=== PATIENT | female | born 1945 | race Caucasian/White ===

== ENCOUNTER 2018-05-23 11:54 | Outpatient (CLI) | payer MEDICARE, BC ==
[2018-05-23] VITALS (23 sets, daily range): BP systolic 114–142; BP diastolic 51–88
== END 2018-05-23 23:59 | disposition home or self-care (01) ==
LOC: CARD DIAG 11:54
PROVIDERS: ATTEND Internal Medicine Cardiovascular Disease
DX: R42 Dizziness and giddiness (principal)
CPT/HCPCS: 93660

== ENCOUNTER 2019-02-26 20:29 | Emergency (ER) | payer MEDICARE, BC ==
[~2019-02-26] VITALS: Ht 152.4 cm; Wt 65.0 kg
[2019-02-26] MEDS ORDERED: BENZ200C53 PO (21:14)
[2019-02-26] MEDS ORDERED: acetaminophen w/codeine (30MG) #3 tablet PO ONE (21:15)
[2019-02-26] MEDS ORDERED: benzonatate 100mg capsule PO ONE (21:15)
[2019-02-26 22:04] VITALS: BP 138/76
== END 2019-02-26 22:05 | disposition home or self-care (01) ==
LOC: ER 20:29
DX: R05 Cough (principal); I10 Essential (primary) hypertension; I25.2 Old myocardial infarction; Z79.899 Other long term (current) drug therapy
CPT/HCPCS: 71046; 93005; 99283

== ENCOUNTER 2019-03-01 20:54 | Emergency (ER) | payer MEDICARE, BC ==
[~2019-03-01] VITALS: Ht 152.4 cm; Wt 68.2 kg
[~2019-03-01 20:54] MED LIST: BENZ200C53 PO
[2019-03-01] MEDS ORDERED: aspirin 81mg tab.chew PO ONE (21:00)
[2019-03-01 21:25] LABS: BASOPHILS % (AUTO) 0.3 % (0-1); EOSINOPHILS # (AUTO) 0.4 X10'3 (0-0.9); EOSINOPHILS % (AUTO) 2.7 % (0-6); HEMATOCRIT 33.9 % (35.0-45.0); HEMOGLOBIN 11.4 g/dl (12.0-16.0); LYMPHOCYTES # (AUTO) 0.7 X10'3 (1.1-4.8); MEAN CORPUSCULAR HEMOGLOBIN 30.4 PG (27.0-31.0); MEAN CORPUSCULAR HGB CONC 33.6 g/dL (33.0-36.5); MEAN CORPUSCULAR VOLUME 90.4 FL (78-98); MONOCYTES # (AUTO) 0.5 X10'3 (0-0.9); MONOCYTES % (AUTO) 3.5 % (2-12); NEUTROPHILS # (AUTO) 11.8 X10'3 (1.8-7.7); NEUTROPHILS % (AUTO) 88.5 % (42-75); PLATELET COUNT 345 X10'3 (140-440); RED BLOOD COUNT 3.75 X10'6 (4.20-5.60); RED CELL DISTRIBUTION WIDTH 13.1 % (11.5-14.5); WHITE BLOOD COUNT 13.3 X10'3 (4.5-11.0)
[2019-03-01] MEDS ORDERED: ipratropium/albuterol 3ml nebule NEB ONE (21:30)
[2019-03-01] MEDS ORDERED: methylPREDNISolone sod succ 125mg/2ml vial IV ONE (21:30)
[2019-03-01 21:36] LABS: ALANINE AMINOTRANSFERASE 30 U/L (12-78); ALBUMIN 3.5 G/DL (3.4-5.0); ALKALINE PHOSPHATASE 103 IU/L (46-116); ANION GAP 6 (8-16); ASPARTATE AMINO TRANSFERASE 26 U/L (10-37); BILIRUBIN,TOTAL 0.6 MG/DL (0.1-1.0); BLOOD UREA NITROGEN 10 MG/DL (7-18); BUN/CREATININE RATIO 12.8 (6.6-38.0); CALCIUM 8.7 MG/DL (8.5-10.1); CHLORIDE 99 MMOL/L (99-107); CREATININE 0.78 MG/DL (0.40-0.90); GLUCOSE 99 MG/DL (70-104); POTASSIUM 4.1 MMOL/L (3.5-5.1); SODIUM 135 MMOL/L (135-145); TOTAL CARBON DIOXIDE 29.6 MMOL/L (24-32); TOTAL PROTEIN 6.9 G/DL (6.4-8.2); eGFR 73 ML/MIN
[2019-03-01 21:43] LABS: MAGNESIUM 1.7 MG/DL (1.5-2.4)
[2019-03-01 21:47] VITALS: BP 135/54
[2019-03-01] MEDS ORDERED: PRED20TA PO (22:34)
[2019-03-01] MEDS ORDERED: GUAI600T45 PO (22:34)
[2019-03-01] MEDS ORDERED: GUAI-934 PO (22:38)
[2019-03-01] MEDS ORDERED: ketorolac trometh. 30mg/ml inj. IV ONE (22:45)
== END 2019-03-01 23:21 | disposition home or self-care (01) ==
LOC: ER 20:55
DX: J40 Bronchitis, not specified as acute or chronic (principal); E78.00 Pure hypercholesterolemia, unspecified; I10 Essential (primary) hypertension; I25.2 Old myocardial infarction; Z79.899 Other long term (current) drug therapy
CPT/HCPCS: 36415; 71045; 80053; 83735; 83880; 84484; 85025; 93005; 94640; 96374; 99284; J1885; J2930; 94760

== ENCOUNTER 2020-11-05 07:41 | Day surgery (SDC) | payer MEDICARE, BC ==
[~2020-11-05] VITALS: Ht 152.4 cm; Wt 64.0 kg
[~2020-11-05 07:41] MED LIST changes: +GUAI-934 PO; +GUAI600T45 PO
[2020-11-05] MEDS ORDERED: albumin 25% 100mL bottle x 1 IV PRN (08:05)
[2020-11-05 08:30] VITALS: BP 154/63
[2020-11-05] MEDS ORDERED: CARV6.2553 PO (08:39)
[2020-11-05] MEDS ORDERED: BUPR200T27 PO (08:39)
[2020-11-05] MEDS ORDERED: AMIT10TA6 PO (08:39)
[2020-11-05] MEDS ORDERED: NABU-139 PO (08:39)
[2020-11-05] MEDS ORDERED: LISI10TA27 PO (08:39)
[2020-11-05] MEDS ORDERED: CYCL-1 PO (08:39)
[2020-11-05] MEDS ORDERED: PANT40TA54 PO (08:39)
[2020-11-05] MEDS ORDERED: HYDR200T84 PO (08:39)
[2020-11-05] MEDS ORDERED: BENZ-49 PO (08:39)
[2020-11-05] MEDS ORDERED: HYDR-3972 PO (08:39)
[2020-11-05] MEDS ORDERED: TRAZ-251 PO (08:39)
[2020-11-05 09:45] VITALS: BP 134/81
[2020-11-05 10:00] VITALS: BP 132/51
[2020-11-05 10:15] VITALS: BP 131/53
[2020-11-05 10:30] VITALS: BP 140/62
[2020-11-05 10:45] VITALS: BP 142/60
[2020-11-05 12:03] LABS: EOSINOPHILS,BODY FLUID 2 %; LYMPHOCYTES,BODY FLUID 73 %; MONOCYTES,BODY FLUID 22 %; NEUTROPHILS,BODY FLUID 3 %
[2020-11-05 12:04] LABS: BF RBC COUNT 2775 /CU MM; BF WBC COUNT 575 /CU MM (0-1000); BFAPPEAR CLEAR; BFCOLOR YELLOW; BFVOLUME 55 ML
== END 2020-11-05 10:50 | disposition home or self-care (01) ==
LOC: SSTAY O 07:41
PROVIDERS: ATTEND Radiology Vascular & Interventional Radiology
DX: J90 Pleural effusion, not elsewhere classified (principal); D72.820 Lymphocytosis (symptomatic); J44.9 Chronic obstructive pulmonary disease, unspecified; I10 Essential (primary) hypertension; F11.20 Opioid dependence, uncomplicated; Z85.3 Personal history of malignant neoplasm of breast; Z79.899 Other long term (current) drug therapy
CPT/HCPCS: 32555; 36415; 87070; 88108; 88305; 88342; 89051

== ENCOUNTER 2020-12-06 08:49 | Day surgery (SDC) | payer MEDICARE, BC ==
[~2020-12-06] VITALS: Ht 152.4 cm; Wt 63.0 kg
[~2020-12-06 08:49] MED LIST changes: +AMIT10TA6 PO; +BENZ-49 PO; +BUPR200T27 PO; +CARV6.2553 PO; +CYCL-1 PO; +HYDR-3972 PO; +HYDR200T84 PO; +LISI10TA27 PO; +NABU-139 PO; +PANT40TA54 PO; +TRAZ-251 PO
[2020-12-06] MEDS ORDERED: albumin 25% 100mL bottle x 1 IV PRN (09:15)
[2020-12-06 09:23] VITALS: BP 135/54
[2020-12-06 09:51] VITALS: BP 113/43
[2020-12-06 09:57] VITALS: BP 146/71
[2020-12-06 10:00] VITALS: BP 148/69
[2020-12-06 10:15] VITALS: BP 129/53
[2020-12-06 10:30] VITALS: BP 120/52
== END 2020-12-06 10:40 | disposition home or self-care (01) ==
LOC: SSTAY O 08:49
PROVIDERS: ATTEND Preventive Medicine Aerospace Medicine
DX: J90 Pleural effusion, not elsewhere classified (principal); J44.9 Chronic obstructive pulmonary disease, unspecified; I10 Essential (primary) hypertension; F11.20 Opioid dependence, uncomplicated; Z85.3 Personal history of malignant neoplasm of breast; Z79.899 Other long term (current) drug therapy
CPT/HCPCS: 32555

== ENCOUNTER 2021-01-25 06:44 | Day surgery (SDC) | payer MEDICARE, BC ==
[~2021-01-25] VITALS: Ht 152.4 cm; Wt 62.2 kg
[~2021-01-25 06:44] MED LIST changes: -BENZ200C53 PO; -GUAI-934 PO; -GUAI600T45 PO
[2021-01-25] MEDS ORDERED: LIDOcaine 1% 30ml preserv. free vial SQ STA (06:51)
[2021-01-25] MEDS ORDERED: albumin 25% 100mL bottle x 1 IV PRN (07:10)
[2021-01-25 07:13] VITALS: BP 123/71
[2021-01-25 08:28] VITALS: BP 155/70
[2021-01-25 08:38] VITALS: BP 129/74
[2021-01-25 08:42] VITALS: BP 150/48
== END 2021-01-25 09:00 | disposition home or self-care (01) ==
LOC: SSTAY O 06:44
PROVIDERS: ATTEND Radiology Vascular & Interventional Radiology
DX: J90 Pleural effusion, not elsewhere classified (principal); J44.9 Chronic obstructive pulmonary disease, unspecified; I10 Essential (primary) hypertension; F11.20 Opioid dependence, uncomplicated; Z85.3 Personal history of malignant neoplasm of breast; Z79.899 Other long term (current) drug therapy
CPT/HCPCS: 32555